=== PATIENT | male | born 2000 | race Caucasian/White ===

== ENCOUNTER → 2023-10-25 | Outpatient (CLI) | payer BC ==
[2023-10-26 02:18] LABS: ALT 29 U/L (10-49); AST 19 U/L (14-35); Blood Urea Nitrogen 12.3 mg/dL (9.0-27.0); T4, Free (Free Thyroxine) 1.44 ng/dL (0.80-1.80)
[2023-10-26 02:48] LABS: Basophils # (A) 0.03 X 10*3/uL (0.00-0.10); Basophils % (A) 0.7 %; Eosinophils # (A) 0.07 X 10*3/uL (0.04-0.35); Eosinophils % (A) 1.6 %; HGB 16.4 g/dL (13.0-17.0); Lymphocytes # (A) 1.31 X 10*3/uL (0.90-5.00); Lymphocytes % (A) 29.8 %; MCH 31.2 pg (27.0-32.0); MCHC 34.2 g/dL (32.0-37.0); MCV 91.3 FL (80.0-97.0); Mean Platelet Volume 11.2 FL (9.5-12.2); Monocytes # (A) 0.49 X 10*3/uL (0.20-1.00); Monocytes % (A) 11.1 %; NRBC Per 100 WBC 0 X 10*3/uL (0.00-0.01); Neutrophils # (A) 2.49 X 10*3/uL (1.80-7.70); Neutrophils % (A) 56.6 %; Platelet Count 272 X 10*3/uL (140-440); RBC 5.26 X 10*6/uL (4.40-5.60); RDW 11.7 % (11.5-14.5)
== END | disposition home or self-care (01) ==
LOC: LABWHC1 13:18
PROVIDERS: ATTEND Dermatology MOHS-Micrographic Surgery
DX: L64.8 Other androgenic alopecia (principal)
CPT/HCPCS: 36415; 82565; 84439; 84443; 84450; 84460; 84520; 85025